=== PATIENT | female | born 2000 | race Caucasian/White ===

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

== ENCOUNTER 2018-02-10 20:25 | Emergency (ER) | payer OTHER ==
[~2018-02-10] VITALS: Ht 160 cm; Wt 74.8 kg
[~2018-02-10 20:25] MED LIST changes: +CLARITIN10 MG PO; +FLONASE ALLERG9.9 ML NAS; +PREDNISONE10 MG PO; +ROBITUSSIN DM 105 ML PO
[2018-02-10 21:33] LABS: BILIRUBIN NEGATIVE (NEGATIVE); BLOOD NEGATIVE (NEGATIVE); CLARITY SL CLOUDY (CLEAR); COLOR YELLOW (YELLOW); GLUCOSE NEGATIVE (NEGATIVE); KETONE NEGATIVE (NEGATIVE); LEUKO ESTERASE NEGATIVE (NEGATIVE); NITRITE NEGATIVE (NEGATIVE); UROBILINOGEN 0.2 E.U./dl (0.2-1.0)
[2018-02-10 21:42] LABS: BACTERIA 3+; EPITHELIAL CELLS 41-50
[2018-02-10] MEDS ORDERED: TESSALON PERLE100 M1 PO (21:51)
[2018-02-10] MEDS ORDERED: SEPTDS PO (21:51)
== END 2018-02-10 21:57 | disposition home or self-care (01) ==
LOC: ED 20:25
PROVIDERS: Nurse Practitioner Family
DX: J01.90 Acute sinusitis, unspecified (principal); R10.30 Lower abdominal pain, unspecified; R63.0 Anorexia; R11.2 Nausea with vomiting, unspecified; F17.200 Nicotine dependence, unspecified, uncomplicated; Z88.1 Allergy status to other antibiotic agents

== ENCOUNTER 2018-02-27 18:10 | Emergency (ER) | payer OTHER ==
[~2018-02-27] VITALS: Ht 160 cm; Wt 74.8 kg
[~2018-02-27 18:10] MED LIST changes: +SEPTDS PO; +TESSALON PERLE100 M1 PO
[2018-02-27] MEDS ORDERED: VIBRAMYCIN100 MG PO (18:15)
== END 2018-02-27 18:30 | disposition home or self-care (01) ==
LOC: ED 18:10
DX: L02.413 Cutaneous abscess of right upper limb (principal); Z98.890 Other specified postprocedural states; Z79.899 Other long term (current) drug therapy; Z88.1 Allergy status to other antibiotic agents

== ENCOUNTER 2018-05-17 16:16 | Emergency (ER) | payer OTHER ==
[~2018-05-17] VITALS: Ht 160 cm; Wt 74.8 kg
[~2018-05-17 16:16] MED LIST changes: +VIBRAMYCIN100 MG PO
[2018-05-17 16:42] LABS: BILIRUBIN NEGATIVE (NEGATIVE); BLOOD NEGATIVE (NEGATIVE); CLARITY CLOUDY (CLEAR); COLOR YELLOW (YELLOW); GLUCOSE NEGATIVE (NEGATIVE); KETONE NEGATIVE (NEGATIVE); LEUKO ESTERASE 1+ (NEGATIVE); NITRITE NEGATIVE (NEGATIVE); SPECIFIC GRAVITY >= 1.030 (1.005-1.030); UROBILINOGEN 0.2 E.U./dl (0.2-1.0)
[2018-05-17 16:49] LABS: BACTERIA 2+; EPITHELIAL CELLS TNTC; WBC 31-40 wbc/hpf (0-5)
[2018-05-17] MEDS ORDERED: PRENATAL TABLE1 EAC2 PO (17:55)
[2018-05-17] MEDS ORDERED: AVPAK AZITHROM250 M1 PO (17:57)
== END 2018-05-17 18:09 | disposition home or self-care (01) ==
LOC: ED 16:16
PROVIDERS: Nurse Practitioner Family
DX: O23.41 Unspecified infection of urinary tract in pregnancy, first trimester (principal); Z88.1 Allergy status to other antibiotic agents; Z3A.01 Less than 8 weeks gestation of pregnancy

== ENCOUNTER 2018-07-12 14:59 | Emergency (ER) | payer OTHER ==
[~2018-07-12] VITALS: Ht 160 cm; Wt 71.7 kg
[~2018-07-12 14:59] MED LIST changes: +AVPAK AZITHROM250 M1 PO; +PRENATAL TABLE1 EAC2 PO
[2018-07-12 15:35] LABS: BASO % 0.2 % (0.0-1.0); EOS # 0.1 10*3/uL (0.0-0.4); EOS % 0.7 % (1.0-4.0); HEMOGLOBIN 11.4 g/dl (12.0-16.0); LYMPH # 1.6 10*3/uL (1.3-4.4); LYMPH % 19.7 % (27.0-41.0); MEAN CELL VOLUME 89.2 fl (81.0-99.0); MEAN CORPUSCULAR HGB 29.9 pg (27.0-31.0); MEAN CORPUSCULAR HGB CONC 33.5 g/dl (33.0-37.0); MEAN PLATELET VOLUME 10.4 fl (9.6-12.3); MONO # 0.6 10*3/uL (0.1-1.0); MONO % 6.9 % (3.0-9.0); NEUT # 5.9 10*3/uL (2.3-7.9); NEUT % 72.4 % (47.0-73.0); PLATELET COUNT AUTOMATED 232 10*3/uL (130-400); RED BLOOD COUNT 3.81 10*6/uL (4.10-5.10); RED CELL DISTRI WIDTH 14.5 % (0-14.5); WHITE BLOOD COUNT 8.2 10*3/uL (4.8-10.8)
[2018-07-12 15:57] LABS: ALBUMIN 3.4 gm/dl (3.1-4.5); ALKALINE PHOSPHATASE 71 U/L (45-117); BUN 6 mg/dl (7-24); CHLORIDE 106 mmol/L (98-107); CREATININE 0.57 mg/dL (0.55-1.02); POTASSIUM 3.9 mmol/L (3.5-5.1); SGOT/AST 12 IU/L (3-35); SGPT/ALT 13 U/L (12-78); SODIUM 139 mmol/L (136-145); TOTAL PROTEIN 7.8 gm/dL (6.4-8.2)
[2018-07-12 16:29] LABS: BILIRUBIN NEGATIVE (NEGATIVE); BLOOD NEGATIVE (NEGATIVE); CLARITY SL CLOUDY (CLEAR); COLOR YELLOW (YELLOW); GLUCOSE NEGATIVE (NEGATIVE); KETONE 2+ (NEGATIVE); LEUKO ESTERASE 2+ (NEGATIVE); NITRITE NEGATIVE (NEGATIVE); UROBILINOGEN 0.2 E.U./dl (0.2-1.0)
[2018-07-12 16:40] LABS: BACTERIA 3+; EPITHELIAL CELLS 21-30; WBC 21-30 wbc/hpf (0-5)
[2018-07-12] MEDS ORDERED: MACROBID100 M1 PO (16:59)
== END 2018-07-12 17:02 | disposition home or self-care (01) ==
LOC: ED 14:59
PROVIDERS: Nurse Practitioner Family
DX: O23.42 Unspecified infection of urinary tract in pregnancy, second trimester (principal); Z88.1 Allergy status to other antibiotic agents; Z3A.15 15 weeks gestation of pregnancy

== ENCOUNTER 2018-10-03 00:50 | Emergency (ER) | payer OTHER ==
[~2018-10-03] VITALS: Ht 160 cm; Wt 74.8 kg
[~2018-10-03 00:50] MED LIST changes: +MACROBID100 M1 PO
[2018-10-03 01:17] LABS: BILIRUBIN 1+ (NEGATIVE); BLOOD NEGATIVE (NEGATIVE); CLARITY CLOUDY (CLEAR); COLOR YELLOW (YELLOW); GLUCOSE NEGATIVE (NEGATIVE); KETONE 1+ (NEGATIVE); LEUKO ESTERASE 2+ (NEGATIVE); NITRITE NEGATIVE (NEGATIVE); SPECIFIC GRAVITY >= 1.030 (1.005-1.030); UROBILINOGEN 0.2 E.U./dl (0.2-1.0)
[2018-10-03 01:28] LABS: BASO # 0.1 10*3/uL (0.0-0.1); BASO % 0.6 % (0.0-1.0); EOS # 0.1 10*3/uL (0.0-0.4); EOS % 1.1 % (1.0-4.0); HEMATOCRIT 31.3 % (37.0-47.0); HEMOGLOBIN 10.5 g/dl (12.0-16.0); LYMPH # 1.8 10*3/uL (1.3-4.4); LYMPH % 20.8 % (27.0-41.0); MEAN CELL VOLUME 92.1 fl (81.0-99.0); MEAN CORPUSCULAR HGB 30.9 pg (27.0-31.0); MEAN CORPUSCULAR HGB CONC 33.5 g/dl (33.0-37.0); MEAN PLATELET VOLUME 10.2 fl (9.6-12.3); MONO # 0.7 10*3/uL (0.1-1.0); MONO % 7.9 % (3.0-9.0); NEUT # 6.1 10*3/uL (2.3-7.9); NEUT % 69.4 % (47.0-73.0); PLATELET COUNT AUTOMATED 250 10*3/uL (130-400); WHITE BLOOD COUNT 8.8 10*3/uL (4.8-10.8)
[2018-10-03 01:31] LABS: BACTERIA 2+; EPITHELIAL CELLS TNTC; WBC 16-20 wbc/hpf (0-5)
[2018-10-03 01:43] LABS: ALBUMIN 2.9 gm/dl (3.1-4.5); ALKALINE PHOSPHATASE 106 U/L (45-117); BUN 5 mg/dl (7-24); CHLORIDE 108 mmol/L (98-107); CREATININE 0.44 mg/dL (0.55-1.02); POTASSIUM 3.5 mmol/L (3.5-5.1); SGOT/AST 10 IU/L (3-35); SGPT/ALT 12 U/L (12-78); SODIUM 140 mmol/L (136-145); TOTAL PROTEIN 7.3 gm/dL (6.4-8.2)
[2018-10-03] MEDS ORDERED: SEPTDS PO (01:53)
== END 2018-10-03 02:10 | disposition home or self-care (01) ==
LOC: ED 00:50
PROVIDERS: Student in an Organized Health Care Education/Training Program
DX: O26.892 Other specified pregnancy related conditions, second trimester (principal); R11.10 Vomiting, unspecified; R51 Headache; J02.9 Acute pharyngitis, unspecified; O99.332 Smoking (tobacco) complicating pregnancy, second trimester; Z88.1 Allergy status to other antibiotic agents; Z79.2 Long term (current) use of antibiotics; Z79.899 Other long term (current) drug therapy; Z3A.27 27 weeks gestation of pregnancy

== ENCOUNTER 2018-11-01 19:46 | Emergency (ER) | payer OTHER ==
[~2018-11-01] VITALS: Ht 160 cm; Wt 73.9 kg
[2019-01-21] MEDS ORDERED: AMOXICILLIN500 M2 PO (16:50)
== END 2018-11-01 21:25 | disposition home or self-care (01) ==
LOC: ED 19:46
DX: O26.893 Other specified pregnancy related conditions, third trimester (principal); R51 Headache; R20.0 Anesthesia of skin; Z88.1 Allergy status to other antibiotic agents; Z79.2 Long term (current) use of antibiotics; Z79.899 Other long term (current) drug therapy; Z3A.31 31 weeks gestation of pregnancy

== ENCOUNTER 2018-11-12 11:19 | Emergency (ER) | payer OTHER ==
[~2018-11-12] VITALS: Ht 160 cm; Wt 74.8 kg
[2018-11-12 11:42] LABS: BILIRUBIN NEGATIVE (NEGATIVE); BLOOD NEGATIVE (NEGATIVE); CLARITY SL CLOUDY (CLEAR); COLOR YELLOW (YELLOW); GLUCOSE NEGATIVE (NEGATIVE); KETONE NEGATIVE (NEGATIVE); LEUKO ESTERASE NEGATIVE (NEGATIVE); NITRITE NEGATIVE (NEGATIVE); SPECIFIC GRAVITY <= 1.005 (1.005-1.030); UROBILINOGEN 0.2 E.U./dl (0.2-1.0)
[2018-11-12 11:51] LABS: URINE AMPHETAMINES < 1000 (1000ng/ml); URINE BARBITURATES < 200 (200ng/ml); URINE BENZODIAZEPINES < 200 (200ng/ml); URINE CANNABINOIDS (THC) < 50 (50ng/ml); URINE COCAINE < 300 (300ng/ml); URINE METHADONE < 300 (300ng/ml); URINE OPIATES < 300 (300ng/ml)
[2018-11-12 11:55] LABS: URINE PHENCYCLIDINE < 25 (25ng/ml)
[2018-11-12 12:02] LABS: BASO # 0.1 10*3/uL (0.0-0.1); BASO % 0.7 % (0.0-1.0); EOS # 0.1 10*3/uL (0.0-0.4); EOS % 1.4 % (1.0-4.0); HEMATOCRIT 29.5 % (37.0-47.0); HEMOGLOBIN 9.7 g/dl (12.0-16.0); LYMPH # 1.9 10*3/uL (1.3-4.4); LYMPH % 21.8 % (27.0-41.0); MEAN CELL VOLUME 90.5 fl (81.0-99.0); MEAN CORPUSCULAR HGB 29.8 pg (27.0-31.0); MEAN CORPUSCULAR HGB CONC 32.9 g/dl (33.0-37.0); MEAN PLATELET VOLUME 10.6 fl (9.6-12.3); MONO # 0.6 10*3/uL (0.1-1.0); MONO % 6.8 % (3.0-9.0); NEUT # 5.9 10*3/uL (2.3-7.9); NEUT % 68.9 % (47.0-73.0); PLATELET COUNT AUTOMATED 260 10*3/uL (130-400); RED BLOOD COUNT 3.26 10*6/uL (4.10-5.10); RED CELL DISTRI WIDTH 13.1 % (0-14.5); WHITE BLOOD COUNT 8.5 10*3/uL (4.8-10.8)
[2018-11-12 12:21] LABS: BACTERIA 2+; EPITHELIAL CELLS 15-20
[2018-11-12 12:31] LABS: BUN 4 mg/dl (7-24); CHLORIDE 109 mmol/L (98-107); CREATININE 0.46 mg/dL (0.55-1.02); POTASSIUM 3.6 mmol/L (3.5-5.1); SODIUM 139 mmol/L (136-145)
[2018-11-12 12:57] LABS: ALBUMIN 2.6 gm/dl (3.1-4.5); ALKALINE PHOSPHATASE 123 U/L (45-117); BILIRUBIN, DIRECT < 0.1 mg/dL (0.0-0.2); SGOT/AST 9 IU/L (3-35); SGPT/ALT 7 U/L (12-78)
[2019-01-21] MEDS ORDERED: AMOXICILLIN500 M2 PO (16:50)
== END 2018-11-12 12:58 | disposition home or self-care (01) ==
LOC: ED 11:19
PROVIDERS: Emergency Medicine
DX: O99.013 Anemia complicating pregnancy, third trimester (principal); R55 Syncope and collapse; Z3A.32 32 weeks gestation of pregnancy; Z88.1 Allergy status to other antibiotic agents; Z79.899 Other long term (current) drug therapy

== ENCOUNTER 2019-02-26 18:46 | Emergency (ER) | payer OTHER ==
[~2019-02-26] VITALS: Ht 160 cm; Wt 72.6 kg
[~2019-02-26 18:46] MED LIST changes: +AMOXICILLIN500 M2 PO
[2019-02-26] MEDS ORDERED: SEPTDS PO (19:37)
[2019-02-26] MEDS ORDERED: IBUPROFEN600 MG PO (19:37)
== END 2019-02-26 19:57 | disposition home or self-care (01) ==
LOC: ED 18:46
DX: T63.301A Toxic effect of unspecified spider venom, accidental (unintentional), initial encounter (principal); M79.604 Pain in right leg; Z88.1 Allergy status to other antibiotic agents; Y92.89 Other specified places as the place of occurrence of the external cause

== ENCOUNTER 2019-03-10 23:03 | Emergency (ER) | payer OTHER ==
[~2019-03-10] VITALS: Wt 74.4 kg
[~2019-03-10 23:03] MED LIST changes: +IBUPROFEN600 MG PO
== END 2019-03-11 01:13 | disposition home or self-care (01) ==
LOC: ED 23:03
DX: A08.4 Viral intestinal infection, unspecified (principal); Z88.1 Allergy status to other antibiotic agents

== ENCOUNTER 2019-06-04 18:44 | Emergency (ER) | payer OTHER ==
[~2019-06-04] VITALS: Ht 160 cm; Wt 72.6 kg
[2019-06-04] MEDS ORDERED: AMOXICILLIN500 M2 PO (19:42)
== END 2019-06-04 19:44 | disposition home or self-care (01) ==
LOC: ED 18:44
DX: H66.93 Otitis media, unspecified, bilateral (principal); J02.9 Acute pharyngitis, unspecified; Z88.1 Allergy status to other antibiotic agents; Z79.2 Long term (current) use of antibiotics; Z79.899 Other long term (current) drug therapy

== ENCOUNTER 2019-07-23 20:38 | Emergency (ER) | payer OTHER ==
[~2019-07-23] VITALS: Ht 160 cm; Wt 77.1 kg
[2019-07-23 21:09] LABS: BASO # 0.1 10*3/uL (0.0-0.1); BASO % 1.2 % (0.0-1.0); EOS # 0.2 10*3/uL (0.0-0.4); EOS % 2.7 % (1.0-4.0); HEMATOCRIT 40.6 % (37.0-47.0); HEMOGLOBIN 12.6 g/dl (12.0-16.0); LYMPH # 2.2 10*3/uL (1.3-4.4); LYMPH % 36.8 % (27.0-41.0); MEAN CELL VOLUME 88.5 fl (81.0-99.0); MEAN CORPUSCULAR HGB 27.5 pg (27.0-31.0); MEAN PLATELET VOLUME 10.1 fl (9.6-12.3); MONO # 0.6 10*3/uL (0.1-1.0); MONO % 9.7 % (3.0-9.0); NEUT # 2.9 10*3/uL (2.3-7.9); NEUT % 49.4 % (47.0-73.0); PLATELET COUNT AUTOMATED 302 10*3/uL (130-400); RED BLOOD COUNT 4.59 10*6/uL (4.10-5.10); RED CELL DISTRI WIDTH 15.4 % (0-14.5)
== END 2019-07-23 21:47 | disposition home or self-care (01) ==
LOC: ED 20:38
PROVIDERS: Emergency Medicine
DX: N93.8 Other specified abnormal uterine and vaginal bleeding (principal); Z88.1 Allergy status to other antibiotic agents; Z79.2 Long term (current) use of antibiotics; Z79.899 Other long term (current) drug therapy

== ENCOUNTER 2019-12-01 08:44 | Emergency (ER) | payer OTHER ==
[~2019-12-01] VITALS: Ht 160 cm; Wt 80.7 kg
[2019-12-01 09:22] LABS: HEMATOCRIT 38.4 % (37.0-47.0); HEMOGLOBIN 12.1 g/dl (12.0-16.0); MEAN CELL VOLUME 88.5 fl (81.0-99.0); MEAN CORPUSCULAR HGB 27.9 pg (27.0-31.0); MEAN CORPUSCULAR HGB CONC 31.5 g/dl (33.0-37.0); MEAN PLATELET VOLUME 10.3 fl (9.6-12.3); PLATELET COUNT AUTOMATED 267 10*3/uL (130-400); RED BLOOD COUNT 4.34 10*6/uL (4.10-5.10); RED CELL DISTRI WIDTH 14.6 % (0-14.5); WHITE BLOOD COUNT 6.7 10*3/uL (4.8-10.8)
[2019-12-01 09:41] LABS: ALKALINE PHOSPHATASE 80 U/L (45-117); BUN 9 mg/dl (7-24); CHLORIDE 111 mmol/L (98-107); CREATININE 0.75 mg/dL (0.55-1.02); LIPASE 74 U/L (73-393); SGOT/AST 12 IU/L (3-35); SGPT/ALT 15 U/L (12-78); SODIUM 140 mmol/L (136-145); TOTAL PROTEIN 7.8 gm/dL (6.4-8.2)
[2019-12-01 09:43] LABS: B-hCG (QUALITATIVE) NEGATIVE (NEGATIVE)
[2019-12-01 09:44] LABS: BASOPHILS 1 % (0-1); TOTAL CELLS COUNTED 100 #CELLS
[2019-12-01 09:45] LABS: PLATELET SUFFICIENCY NORMAL (NORMAL)
[2019-12-01 10:16] LABS: BILIRUBIN NEGATIVE (NEGATIVE); BLOOD 3+ (NEGATIVE); CLARITY SL CLOUDY (CLEAR); COLOR YELLOW (YELLOW); GLUCOSE NEGATIVE (NEGATIVE); KETONE 2+ (NEGATIVE); LEUKO ESTERASE 1+ (NEGATIVE); NITRITE NEGATIVE (NEGATIVE); PH 6.5 (5.0-9.0); UROBILINOGEN 0.2 E.U./dl (0.2-1.0)
[2019-12-01 10:21] LABS: BACTERIA TRACE; EPITHELIAL CELLS 15-20; MUCOUS TRACE; RBC 21-30 rbc/hpf (0-2)
[2019-12-01] MEDS ORDERED: PROTONIX40 MG PO (12:12)
[2019-12-01] MEDS ORDERED: SEPTDS PO (14:19)
[2019-12-01] MEDS ORDERED: ZOFRAN4 MG PO (14:19)
== END 2019-12-01 16:39 | disposition home or self-care (01) ==
LOC: ED 08:44
PROVIDERS: Emergency Medicine
DX: N39.0 Urinary tract infection, site not specified (principal); R11.2 Nausea with vomiting, unspecified; F17.200 Nicotine dependence, unspecified, uncomplicated; Z79.899 Other long term (current) drug therapy

== ENCOUNTER → 2020-04-08 | Outpatient (CLI) | payer OTHER ==
[~2020-04-08] MED LIST changes: +PROTONIX40 MG PO; +ZOFRAN4 MG PO
== END | disposition home or self-care (01) ==
LOC: RAD 16:47
DX: R05 Cough (principal); R06.02 Shortness of breath

== ENCOUNTER → 2020-04-09 | Outpatient (CLI) | payer OTHER | END | disposition home or self-care (01) | LOC: COVID19 00:36 | DX: Z20.828 Contact with and (suspected) exposure to other viral communicable diseases (principal); R05 Cough; R06.02 Shortness of breath; R50.9 Fever, unspecified ==

== ENCOUNTER → 2020-11-07 | Outpatient (CLI) | payer OTHER | END | disposition home or self-care (01) | LOC: COVID19 09:42 | PROVIDERS: ATTEND Family Medicine | DX: Z20.822 Contact with and (suspected) exposure to COVID-19 (principal) ==

== ENCOUNTER 2020-12-06 22:02 | Emergency (ER) | payer OTHER ==
[~2020-12-06] VITALS: Ht 160 cm; Wt 61.2 kg
== END 2020-12-06 23:37 | disposition home or self-care (01) ==
LOC: ED 22:02
DX: F41.9 Anxiety disorder, unspecified (principal); F17.200 Nicotine dependence, unspecified, uncomplicated; Z88.8 Allergy status to other drugs, medicaments and biological substances; Z79.899 Other long term (current) drug therapy; Z98.890 Other specified postprocedural states

== ENCOUNTER 2021-01-08 22:51 | Emergency (ER) | payer OTHER ==
[~2021-01-08] VITALS: Wt 72.6 kg
[2021-01-08] MEDS ORDERED: FLUVOXAMINE50 MG PO (23:00)
== END 2021-01-09 02:09 | disposition home or self-care (01) ==
LOC: ED 22:51
DX: F41.9 Anxiety disorder, unspecified (principal); F41.0 Panic disorder [episodic paroxysmal anxiety]; F17.200 Nicotine dependence, unspecified, uncomplicated; Z88.8 Allergy status to other drugs, medicaments and biological substances; Z79.899 Other long term (current) drug therapy; Z98.890 Other specified postprocedural states

== ENCOUNTER 2021-06-11 14:39 | Emergency (ER) | payer OTHER ==
[~2021-06-11] VITALS: Ht 160 cm; Wt 61.7 kg
[~2021-06-11 14:39] MED LIST changes: +FLUVOXAMINE50 MG PO
== END 2021-06-11 18:52 | disposition left against medical advice (07) ==
LOC: ED 14:39
DX: R11.10 Vomiting, unspecified (principal); Z53.21 Procedure and treatment not carried out due to patient leaving prior to being seen by health care provider

== ENCOUNTER 2022-06-18 21:07 | Emergency (ER) | payer OTHER ==
[~2022-06-18] VITALS: Ht 160 cm; Wt 54.4 kg
== END 2022-06-18 23:57 | disposition left against medical advice (07) ==
LOC: ED 21:07
DX: Z53.21 Procedure and treatment not carried out due to patient leaving prior to being seen by health care provider (principal)

== ENCOUNTER 2022-08-04 15:16 | Emergency (ER) | payer OTHER ==
[~2022-08-04] VITALS: Wt 68.0 kg
== END 2022-08-04 16:30 | disposition home or self-care (01) ==
LOC: ED 15:16
DX: Z53.21 Procedure and treatment not carried out due to patient leaving prior to being seen by health care provider (principal)

== ENCOUNTER 2022-09-16 06:52 | Emergency (ER) | payer OTHER ==
[~2022-09-16] VITALS: Ht 165.1 cm; Wt 77.1 kg
[2022-09-16 07:18] LABS: BASO # 0.1 10*3/uL (0.0-0.1); BASO % 0.5 % (0.0-1.0); EOS # 0.1 10*3/uL (0.0-0.4); EOS % 1.3 % (1.0-4.0); HEMATOCRIT 33.1 % (37.0-47.0); LYMPH # 2.4 10*3/uL (1.3-4.4); LYMPH % 21.5 % (27.0-41.0); MEAN CELL VOLUME 96.8 fl (81.0-99.0); MEAN CORPUSCULAR HGB 31.9 pg (27.0-31.0); MEAN CORPUSCULAR HGB CONC 32.9 g/dl (33.0-37.0); MEAN PLATELET VOLUME 9.4 fl (9.6-12.3); MONO # 0.9 10*3/uL (0.1-1.0); MONO % 8.3 % (3.0-9.0); NEUT # 7.5 10*3/uL (2.3-7.9); NEUT % 68.1 % (47.0-73.0); PLATELET COUNT AUTOMATED 300 10*3/uL (130-400); RED BLOOD COUNT 3.42 10*6/uL (4.10-5.10); RED CELL DISTRI WIDTH 13.3 % (0-14.5)
[2022-09-16 07:33] LABS: ALKALINE PHOSPHATASE 122 U/L (46-116); CHLORIDE 105 mmol/L (98-107); POTASSIUM 3.5 mmol/L (3.4-5.1); SGPT/ALT 10 U/L (10-49); TOTAL PROTEIN 6.7 gm/dL (6.0-8.0)
[2022-09-16 07:34] LABS: BUN < 5 mg/dl (9-23)
== END 2022-09-16 07:20 | disposition short-term general hospital (02) ==
LOC: ED 06:52
PROVIDERS: Emergency Medicine
DX: O42.913 Preterm premature rupture of membranes, unspecified as to length of time between rupture and onset of labor, third trimester (principal); Z3A.36 36 weeks gestation of pregnancy; Z88.1 Allergy status to other antibiotic agents; Z79.899 Other long term (current) drug therapy

== ENCOUNTER 2022-10-11 18:50 | Emergency (ER) | payer OTHER ==
[~2022-10-11] VITALS: Ht 160 cm; Wt 55.8 kg
[2022-10-11 20:03] LABS: BASO # 0.1 10*3/uL (0.0-0.1); BASO % 1.1 % (0.0-1.0); EOS # 0.2 10*3/uL (0.0-0.4); EOS % 2.8 % (1.0-4.0); HEMATOCRIT 37.4 % (37.0-47.0); LYMPH # 2.2 10*3/uL (1.3-4.4); LYMPH % 38.7 % (27.0-41.0); MEAN CELL VOLUME 99.5 fl (81.0-99.0); MEAN CORPUSCULAR HGB 30.9 pg (27.0-31.0); MEAN PLATELET VOLUME 9.7 fl (9.6-12.3); MONO # 0.5 10*3/uL (0.1-1.0); MONO % 8.7 % (3.0-9.0); NEUT # 2.7 10*3/uL (2.3-7.9); NEUT % 48.5 % (47.0-73.0); PLATELET COUNT AUTOMATED 259 10*3/uL (130-400); RED BLOOD COUNT 3.76 10*6/uL (4.10-5.10); RED CELL DISTRI WIDTH 14.1 % (0-14.5); WHITE BLOOD COUNT 5.6 10*3/uL (4.8-10.8)
[2022-10-11 20:19] LABS: ALKALINE PHOSPHATASE 84 U/L (46-116); BUN 9 mg/dl (9-23); CHLORIDE 108 mmol/L (98-107); INTERNATIONAL NORM RATIO 0.9 (2.0-3.5); POTASSIUM 3.9 mmol/L (3.4-5.1); SGPT/ALT 11 U/L (10-49); TOTAL PROTEIN 7.2 gm/dL (6.0-8.0)
[2022-10-11] MEDS ORDERED: ATIVAN0.5 MG PO (20:32)
== END 2022-10-11 20:38 | disposition home or self-care (01) ==
LOC: ED 18:50
PROVIDERS: Physician Assistant
DX: F41.9 Anxiety disorder, unspecified (principal); Z88.1 Allergy status to other antibiotic agents; Z98.890 Other specified postprocedural states

== ENCOUNTER 2023-03-28 19:30 | Emergency (ER) | payer OTHER ==
[~2023-03-28] VITALS: Ht 160 cm; Wt 50.8 kg
[~2023-03-28 19:30] MED LIST changes: +ATIVAN0.5 MG PO
[2023-03-28 20:16] LABS: BASO # 0.1 10*3/uL (0.0-0.1); BASO % 1.5 % (0.0-1.0); EOS # 0.2 10*3/uL (0.0-0.4); EOS % 2.6 % (1.0-4.0); HEMATOCRIT 37.2 % (37.0-47.0); LYMPH % 34.8 % (27.0-41.0); MEAN CELL VOLUME 91.4 fl (81.0-99.0); MEAN CORPUSCULAR HGB 30.2 pg (27.0-31.0); MEAN CORPUSCULAR HGB CONC 33.1 g/dl (33.0-37.0); MEAN PLATELET VOLUME 10.2 fl (9.6-12.3); MONO # 0.5 10*3/uL (0.1-1.0); MONO % 8.6 % (3.0-9.0); NEUT % 52.3 % (47.0-73.0); PLATELET COUNT AUTOMATED 247 10*3/uL (130-400); RED BLOOD COUNT 4.07 10*6/uL (4.10-5.10); RED CELL DISTRI WIDTH 15.7 % (0-14.5); WHITE BLOOD COUNT 5.8 10*3/uL (4.8-10.8)
[2023-03-28 20:32] LABS: BILIRUBIN Negative (Negative); BLOOD 3+ (Negative); CLARITY Cloudy (Clear); COLOR Red (Yellow); GLUCOSE Negative (Negative); KETONE Negative (Negative); LEUKO ESTERASE 3+ (Negative); NITRITE Negative (Negative); SPECIFIC GRAVITY <= 1.005 (1.001-1.030)
[2023-03-28 20:38] LABS: BACTERIA 1+; RBC TNTC rbc/hpf (0-2)
[2023-03-28 20:40] LABS: ALKALINE PHOSPHATASE 64 U/L (46-116); BUN 5 mg/dl (9-23); CHLORIDE 109 mmol/L (98-107); POTASSIUM 3.4 mmol/L (3.4-5.1); SGPT/ALT 13 U/L (10-49); TOTAL PROTEIN 7.6 gm/dL (6.0-8.0)
== END 2023-03-28 21:43 | disposition home or self-care (01) ==
LOC: ED 19:30
PROVIDERS: Nurse Practitioner Family
DX: N93.8 Other specified abnormal uterine and vaginal bleeding (principal); N83.201 Unspecified ovarian cyst, right side; F41.9 Anxiety disorder, unspecified; F17.200 Nicotine dependence, unspecified, uncomplicated; Z87.42 Personal history of other diseases of the female genital tract; Z88.1 Allergy status to other antibiotic agents; Z98.890 Other specified postprocedural states

== ENCOUNTER 2023-08-27 17:54 | Emergency (ER) | payer SELFPAY ==
[~2023-08-27] VITALS: Ht 160 cm; Wt 55.8 kg
[2023-08-27] MEDS ORDERED: ZITHROMAX250 MG PO (19:06)
== END 2023-08-27 19:22 | disposition home or self-care (01) ==
LOC: ED 17:54
DX: J02.8 Acute pharyngitis due to other specified organisms (principal); F32.A Depression, unspecified; F41.9 Anxiety disorder, unspecified; Z88.1 Allergy status to other antibiotic agents; Z98.890 Other specified postprocedural states; Z87.891 Personal history of nicotine dependence; Z20.822 Contact with and (suspected) exposure to COVID-19

== ENCOUNTER 2023-11-09 18:26 | Emergency (ER) | payer MEDICAID ==
[~2023-11-09] VITALS: Ht 160 cm; Wt 54.4 kg
[2023-11-09] MEDS ORDERED: SODIUM CHLORIDE 0.9% 1,000 ML IV ONE (20:20)
[2023-11-09] MEDS ORDERED: IOHEXOL 300 MG/ML 100 ML VIAL IV ONE (20:30)
[2023-11-09] MEDS ORDERED: Ketorolac Tromethamine 60 MG/2 ML VIAL IM ONE (22:05)
[2023-11-09] MEDS ORDERED: Amoxicillin/Clavulanate Pota 875 MG TAB PO ONE (23:25)
[2023-11-09] MEDS ORDERED: AMOX-CLAV 875-1 EACH PO (23:25)
[2023-11-09] MEDS ORDERED: MELOXICAM15 MG PO (23:25)
== END 2023-11-09 23:44 | disposition home or self-care (01) ==
LOC: ED 18:26
DX: K04.7 Periapical abscess without sinus (principal); F17.210 Nicotine dependence, cigarettes, uncomplicated; F41.9 Anxiety disorder, unspecified; Z88.1 Allergy status to other antibiotic agents; Z79.2 Long term (current) use of antibiotics; Z98.890 Other specified postprocedural states

== ENCOUNTER 2024-08-30 21:42 | Emergency (ER) | payer MEDICAID ==
[~2024-08-30] VITALS: Ht 160 cm; Wt 57.2 kg
[~2024-08-30 21:42] MED LIST changes: +AMOX-CLAV 875-1 EACH PO; +MELOXICAM15 MG PO
[2024-08-30] MEDS ORDERED: AMOX-CLAV 875-1 EACH PO (22:22)
[2024-08-30] MEDS ORDERED: Acetaminophen/Hydrocodone Bi 3 TAB PACK PO PRN (22:25)
[2024-08-30] MEDS ORDERED: Amoxicillin/Clavulanate Pota 875 MG TAB PO ONE (22:25)
== END 2024-08-30 22:31 | disposition home or self-care (01) ==
LOC: ED 21:42
DX: K02.9 Dental caries, unspecified (principal); R22.0 Localized swelling, mass and lump, head; F17.210 Nicotine dependence, cigarettes, uncomplicated; Z88.1 Allergy status to other antibiotic agents; Z98.890 Other specified postprocedural states

== ENCOUNTER 2024-09-22 15:51 | Emergency (ER) | payer MEDICAID ==
[~2024-09-22] VITALS: Ht 160 cm; Wt 57.2 kg
[2024-09-22] MEDS ORDERED: FEROSUL325 M1 PO (16:16)
[2024-09-22] MEDS ORDERED: Acetaminophen/Oxycodone 5 MG/325 MG TABLET PO ONE (16:30)
[2024-09-22] MEDS ORDERED: PERCOCET 5-3251 EACH PO (18:02)
== END 2024-09-22 18:18 | disposition home or self-care (01) ==
LOC: ED 15:51
DX: S22.32XA Fracture of one rib, left side, initial encounter for closed fracture (principal); F32.A Depression, unspecified; F41.9 Anxiety disorder, unspecified; Z88.1 Allergy status to other antibiotic agents; Z98.890 Other specified postprocedural states; Z87.891 Personal history of nicotine dependence; W50.1XXA Accidental kick by another person, initial encounter; Y93.89 Activity, other specified; Y92.89 Other specified places as the place of occurrence of the external cause; Y99.8 Other external cause status

== ENCOUNTER 2024-09-29 16:53 | Emergency (ER) | payer MEDICAID ==
[~2024-09-29] VITALS: Ht 160 cm; Wt 57.6 kg
[~2024-09-29 16:53] MED LIST changes: +FEROSUL325 M1 PO; +PERCOCET 5-3251 EACH PO
[2024-09-29] MEDS ORDERED: SODIUM CHLORIDE 0.9% 1,000 ML IV ONE (17:25)
[2024-09-29 18:05] LABS: BASO % 0.8 % (0.0-1.0); EOS % 0.3 % (1.0-4.0); HEMATOCRIT 37.9 % (37.0-47.0); MEAN CELL VOLUME 98.4 fl (81.0-99.0); MEAN CORPUSCULAR HGB CONC 33.5 g/dl (33.0-37.0); MEAN PLATELET VOLUME 9.7 fl (9.6-12.3); MONO # 0.4 10*3/uL (0.1-1.0); MONO % 10.9 % (3.0-9.0); NEUT # 2.8 10*3/uL (2.3-7.9); NEUT % 76.9 % (47.0-73.0); PLATELET COUNT AUTOMATED 157 10*3/uL (130-400); RED BLOOD COUNT 3.85 10*6/uL (4.10-5.10); RED CELL DISTRI WIDTH 13.1 % (0-14.5); WHITE BLOOD COUNT 3.6 10*3/uL (4.8-10.8)
[2024-09-29 18:24] LABS: BUN 8 mg/dl (9-23); CHLORIDE 107 mmol/L (98-107); POTASSIUM 3.3 mmol/L (3.4-5.1)
[2024-09-29] MEDS ORDERED: IBUPROFEN 600 MG TAB PO ONE (18:30)
[2024-09-29] MEDS ORDERED: ACETAMINOPHEN 325 MG TAB PO ONE (18:30)
[2024-09-29] MEDS ORDERED: TAMIFLU 75MG CA75 MG PO (18:47)
== END 2024-09-29 18:51 | disposition home or self-care (01) ==
LOC: ED 16:53
PROVIDERS: Nurse Practitioner Family
DX: J10.1 Influenza due to other identified influenza virus with other respiratory manifestations (principal); Z20.822 Contact with and (suspected) exposure to COVID-19; E86.0 Dehydration; Z88.1 Allergy status to other antibiotic agents; Z98.890 Other specified postprocedural states

== ENCOUNTER 2024-11-26 10:42 | Emergency (ER) | payer OTHER ==
[~2024-11-26] VITALS: Ht 160 cm; Wt 57.6 kg
[~2024-11-26 10:42] MED LIST changes: +TAMIFLU 75MG CA75 MG PO
[2024-11-26] MEDS ORDERED: diphenhydrAMINE hydrochloride 50 MG/ML VIAL IV ONE (11:00)
[2024-11-26] MEDS ORDERED: FAMOTIDINE 50 ML IV ONE (11:00)
[2024-11-26] MEDS ORDERED: SODIUM CHLORIDE 0.9% 1,000 ML IV ONE (11:00)
[2024-11-26] MEDS ORDERED: Metoclopramide Hydrochloride 10 MG/2 ML VIAL IV ONE (11:00)
[2024-11-26 11:08] LABS: EOS # 0.2 10*3/uL (0.0-0.4); EOS % 4.8 % (1.0-4.0); HEMATOCRIT 41.3 % (37.0-47.0); MEAN CELL VOLUME 100.5 fl (81.0-99.0); MEAN CORPUSCULAR HGB 32.6 pg (27.0-31.0); MEAN CORPUSCULAR HGB CONC 32.4 g/dl (33.0-37.0); MEAN PLATELET VOLUME 9.8 fl (9.6-12.3); MONO # 0.3 10*3/uL (0.1-1.0); MONO % 7.7 % (3.0-9.0); NEUT # 2.3 10*3/uL (2.3-7.9); NEUT % 54.9 % (47.0-73.0); PLATELET COUNT AUTOMATED 244 10*3/uL (130-400); RED BLOOD COUNT 4.11 10*6/uL (4.10-5.10); RED CELL DISTRI WIDTH 12.8 % (0-14.5); WHITE BLOOD COUNT 4.2 10*3/uL (4.8-10.8)
[2024-11-26 11:30] LABS: BUN 8 mg/dl (9-23); CHLORIDE 112 mmol/L (98-107); POTASSIUM 3.7 mmol/L (3.4-5.1)
[2024-11-26 11:32] LABS: B-hCG (QUALITATIVE) NEGATIVE (NEGATIVE)
[2024-11-26 11:36] LABS: BILIRUBIN Negative (Negative); BLOOD Negative (Negative); CLARITY Turbid (Clear); COLOR Yellow (Yellow); GLUCOSE Negative (Negative); KETONE Trace (Negative); LEUKO ESTERASE 1+ (Negative); NITRITE Negative (Negative)
[2024-11-26] MEDS ORDERED: Ondansetron4 MG PO (11:47)
[2024-11-26 11:48] LABS: BACTERIA 1+; EPITHELIAL CELLS TNTC
== END 2024-11-26 12:06 | disposition home or self-care (01) ==
LOC: ED 10:42
PROVIDERS: Emergency Medicine
DX: R11.2 Nausea with vomiting, unspecified (principal); R19.7 Diarrhea, unspecified; Z88.1 Allergy status to other antibiotic agents; Z98.890 Other specified postprocedural states

== ENCOUNTER 2025-02-18 12:02 | Emergency (ER) | payer OTHER ==
[~2025-02-18] VITALS: Wt 57.6 kg
[~2025-02-18 12:02] MED LIST changes: +Ondansetron4 MG PO
[2025-02-18] MEDS ORDERED: Acetaminophen/Hydrocodone HP 10/325 PO ONE (12:20)
[2025-02-18 12:34] LABS: BASO # 0.1 10*3/uL (0.0-0.1); BASO % 1.4 % (0.0-1.0); EOS # 0.1 10*3/uL (0.0-0.4); EOS % 2.5 % (1.0-4.0); HEMATOCRIT 39.2 % (37.0-47.0); MEAN CORPUSCULAR HGB 32.4 pg (27.0-31.0); MEAN CORPUSCULAR HGB CONC 32.4 g/dl (33.0-37.0); MEAN PLATELET VOLUME 9.8 fl (9.6-12.3); MONO # 0.3 10*3/uL (0.1-1.0); NEUT # 2.7 10*3/uL (2.3-7.9); NEUT % 61.4 % (47.0-73.0); PLATELET COUNT AUTOMATED 232 10*3/uL (130-400); RED BLOOD COUNT 3.92 10*6/uL (4.10-5.10); RED CELL DISTRI WIDTH 13.7 % (0-14.5); WHITE BLOOD COUNT 4.4 10*3/uL (4.8-10.8)
[2025-02-18 12:52] LABS: BUN 10 mg/dl (9-23); CHLORIDE 112 mmol/L (98-107); POTASSIUM 3.1 mmol/L (3.4-5.1)
== END 2025-02-18 15:16 | disposition home or self-care (01) ==
LOC: ED 12:02
PROVIDERS: Nurse Practitioner Family
DX: N85.8 Other specified noninflammatory disorders of uterus (principal); F32.A Depression, unspecified; F41.9 Anxiety disorder, unspecified; Z88.8 Allergy status to other drugs, medicaments and biological substances; Z98.890 Other specified postprocedural states

== ENCOUNTER 2025-03-10 20:23 | Emergency (ER) | payer OTHER ==
[~2025-03-10] VITALS: Ht 157.4 cm; Wt 53.5 kg
[2025-03-10] MEDS ORDERED: IBUPROFEN 600 MG TAB PO ONE (20:50)
[2025-03-10] MEDS ORDERED: CIPROFLOX-DEXA7.5 ML OT (20:51)
== END 2025-03-10 20:58 | disposition home or self-care (01) ==
LOC: ED 20:23
DX: H60.91 Unspecified otitis externa, right ear (principal); Z88.1 Allergy status to other antibiotic agents; Z98.890 Other specified postprocedural states

== ENCOUNTER 2025-03-27 15:44 | Emergency (ER) | payer OTHER ==
[~2025-03-27] VITALS: Ht 157.4 cm; Wt 53.5 kg
[~2025-03-27 15:44] MED LIST changes: +CIPROFLOX-DEXA7.5 ML OT
[2025-03-27] MEDS ORDERED: diphenhydrAMINE hydrochloride 50 MG/ML VIAL IV ONE (17:05)
[2025-03-27] MEDS ORDERED: Metoclopramide Hydrochloride 10 MG/2 ML VIAL IV ONE (17:05)
[2025-03-27] MEDS ORDERED: SODIUM CHLORIDE 0.9% 500 ML IV ONE (17:05)
[2025-03-27] MEDS ORDERED: Ondansetron Hydrochloride 4 MG/2 ML VIAL IV ONE (17:05)
[2025-03-27 17:15] LABS: BASO # 0.1 10*3/uL (0.0-0.1); BASO % 0.7 % (0.0-1.0); EOS # 0.1 10*3/uL (0.0-0.4); EOS % 0.9 % (1.0-4.0); MEAN CELL VOLUME 97.5 fl (81.0-99.0); MEAN CORPUSCULAR HGB 32.7 pg (27.0-31.0); MEAN PLATELET VOLUME 9.7 fl (9.6-12.3); MONO # 0.6 10*3/uL (0.1-1.0); MONO % 6.7 % (3.0-9.0); NEUT # 6.7 10*3/uL (2.3-7.9); NEUT % 76.8 % (47.0-73.0); NUCLEATED RED BLOOD CELL 0.0 % (0.0-0.0); NUCLEATED RED BLOOD CELL 0.0 10*3/uL (0.0-0.0); PLATELET COUNT AUTOMATED 255 10*3/uL (130-400); RED CELL DISTRI WIDTH 13.4 % (0-14.5)
[2025-03-27 17:36] LABS: BUN 9 mg/dl (9-23); SGPT/ALT 8 U/L (5-49)
[2025-03-27 18:23] LABS: BILIRUBIN Negative (Negative); BLOOD 1+ (Negative); CLARITY Clear (Clear); COLOR Yellow (Yellow); KETONE 1+ (Negative); LEUKO ESTERASE Negative (Negative); NITRITE Negative (Negative); PH 6.0 (4.5-8.0); SPECIFIC GRAVITY 1.020 (1.001-1.030); UROBILINOGEN 1.0 E.U./dl (0.0-1.0)
[2025-03-27] MEDS ORDERED: Ondansetron4 MG PO (18:43)
[2025-03-27] MEDS ORDERED: REGLAN10 M1 PO (18:43)
[2025-03-27 18:54] LABS: BACTERIA TRACE; MUCOUS 3+; RBC 16-20 rbc/hpf (0-2)
== END 2025-03-27 18:42 | disposition home or self-care (01) ==
LOC: ED 15:44
PROVIDERS: Emergency Medicine
DX: K29.70 Gastritis, unspecified, without bleeding (principal); R11.2 Nausea with vomiting, unspecified; K21.9 Gastro-esophageal reflux disease without esophagitis; Z88.1 Allergy status to other antibiotic agents; Z98.890 Other specified postprocedural states; Z79.899 Other long term (current) drug therapy

== ENCOUNTER 2025-09-02 18:54 | Emergency (ER) | payer OTHER ==
[~2025-09-02] VITALS: Ht 160 cm; Wt 54.4 kg
[~2025-09-02 18:54] MED LIST changes: +REGLAN10 M1 PO
[2025-09-02] MEDS ORDERED: Ondansetron Hydrochloride 4 MG TAB PO ONE (20:10)
[2025-09-02] MEDS ORDERED: TRAMADOL HCL25 MG PO (22:32)
[2025-09-02] MEDS ORDERED: IBU600 M1 PO (22:34)
== END 2025-09-02 23:29 | disposition home or self-care (01) ==
LOC: ED 18:54
DX: S89.92XA Unspecified injury of left lower leg, initial encounter (principal); S39.92XA Unspecified injury of lower back, initial encounter; F41.9 Anxiety disorder, unspecified; F32.A Depression, unspecified; Z98.890 Other specified postprocedural states; Z88.1 Allergy status to other antibiotic agents; W19.XXXA Unspecified fall, initial encounter; Y93.89 Activity, other specified; Y92.89 Other specified places as the place of occurrence of the external cause; Y99.8 Other external cause status